=== PATIENT | female | born 1990 | race Caucasian/White ===

== ENCOUNTER 2018-09-21 15:17 | Emergency (ER) | payer SELFPAY ==
--- NOTE | 2018-09-21 16:12 | PDOC ---
Rapid Medical Evaluation Time Seen by Provider: 09/21/18 16:11 Medical Evaluation: Allergies Allergy/AdvReac Type Severity Reaction Status Date / Time No Known Allergies Allergy Verified 01/20/17 17:52 09/21/18 16:11 Pt c/o: ruq pain radiating to lower abd pain, LMP 08/18, no fever, diarrhea, no gi/gu hx Pt on brief exam: ruq tenderness, mild right and mid suprapubic pain Patient ordered for: lipase, cbc, comp, ua, upreg Pt to proceed to the ED Discharge Disposition - Diagnosis Abdominal pain - Referrals - Patient Instructions - Post Discharge Activity
[2018-09-21 16:30] VITALS: BP 126/60; PULSE 84; TEMP 98.1; BMI 20.3
[2018-09-21 16:59] LABS: HCG,QUALITATIVE URINE Positive
[2018-09-21 17:00] LABS: URINE APPEARANCE SLCLOUDY; URINE BILIRUBIN NEGATIVE (<2.0 mg/dL); URINE COLOR YELLOW; URINE GLUCOSE (UA) NEGATIVE (NEGATIVE); URINE KETONE NEGATIVE (NEGATIVE); URINE LEUK ESTERASE 2+ (NEGATIVE); URINE NITRITE NEGATIVE (NEGATIVE); URINE PROTEIN NEGATIVE (NEGATIVE); URINE UROBILINOGEN NEGATIVE mg/dL (0.2-1.0)
[2018-09-21 17:14] LABS: EPI CELLS MODERATE /HPF (FEW); URINE MUCUS MANY
[2018-09-21 17:38] LABS: ALBUMIN 3.8 g/dl (3.4-5.0); ALK PHOS 65 U/L (45-117); ANION GAP 5 MMOL/L (8-16); BILIRUBIN,TOTAL 0.2 mg/dL (0.2-1); BLOOD UREA NITROGEN 12 mg/dL (7-18); CALCIUM 8.6 mg/dL (8.5-10.1); CHLORIDE 105 mmol/L (98-107); CO2 28 mmol/L (21-32); CREATININE 0.7 mg/dL (0.55-1.3); GLUCOSE,RANDOM 54 mg/dL (74-106); LIPASE 79 U/L (73-393); POTASSIUM 3.5 mmol/L (3.5-5.1); SGOT/AST 15 U/L (15-37); SGPT/ALT 18 U/L (13-61); SODIUM 138 mmol/L (136-145); TOT PROT 7.4 g/dl (6.4-8.2)
[2018-09-21] MEDS ORDERED: ACETAMINOPHEN 1000 MG/100 ML VIAL (NON FORMULARY) IVPB ONE (17:41)
[2018-09-21] MEDS ORDERED: ACETAMINOPHEN INJECTION 100 ML IVPB ONE (17:53)
--- NOTE | 2018-09-21 17:56 | PDOC ---
History of Present Illness - General Chief Complaint: Pain Stated Complaint: PAIN Time Seen by Provider: 09/21/18 16:11 History Source: Patient - History of Present Illness Initial Comments: Patient is a 27 y/o w/ PMHx asthma p/w 1 day abdominal pain that began in the RUQ and radiated to the suprapubic region. 8/10 severity. Motrin provided no relief. Accompanied by nausea and brief vaginal spotting, no discharge. No vomiting/diarrhea/dysuria. No other pain. No other complaints. Hemodynamically stable on presentation. LMP 08/18/2018. Prior OBGYN Hx includes 1 ectopic , 1 elective , has three healthy children. Last delivery was assisted vaginal delivery complicated by variable decelerations in 2012 at [facility]. At time of encounter, labs had been sent and urine qualitative hCG was positive. Results explained to patient. Denies h/o GC/Chlamydia and/or PID. Prior ectopic was managed medically. 09/21/18 17:51 Past History - Travel Traveled outside of the country in the last 30 days: No Close contact w/someone who was outside of country & ill: No - Past Medical History Allergies/Adverse Reactions: Allergies Allergy/AdvReac Type Severity Reaction Status Date / Time No Known Allergies Allergy Verified 09/21/18 16:27 Home Medications: Ambulatory Orders Albuterol Sulfate Inhaler - [Ventolin Hfa *Inhaler*] 1 - 2 inh IH QID PRN Vitamins (r) - [ .Vitamins *Rx*] 1 tab PO DAILY 03/04/13 Iron 1 tab PO DAILY 08/11/13 Acetaminophen [Tylenol .Extra-Strength -] 500 mg PO Q4H #60 tablet 08/27/13 Nitrofurantoin Monohyd/M-Cryst [Macrobid -] 100 mg PO BID #28 capsule 09/21/18 Asthma: Yes (last attack june 2011) Cancer: No Cardiac Disorders: No COPD: No Diabetes: No HTN: No Seizures: No Thyroid Disease: No - Reproductive History (#): 2 Para: 2 Cervical CA: No Dysfunctional Uterine Bleeding: No Ectopic : No Endometrial CA: No Polycystic Ovaries: No Therapeutic (s) & number: Yes (1) Tubal Ligation: No Spontaneous : 0 - Immunization History Td Vaccination: Yes Immunization Up to Date: Yes - Suicide/Smoking/Psychosocial Hx Smoking Status: No Smoking History: Never smoked Years of Tobacco Use: 0 Have you smoked in the past 12 months: No Number of Cigarettes Smoked Daily: 0 Cigars Per Day: 0 Hx Alcohol Use: No Drug/Substance Use Hx: No Substance Use Type: None Hx Substance Use Treatment: No Review of Systems - Review of Systems Comments:: As per HPI 09/21/18 17:57 *Physical Exam - Vital Signs Last Vital Signs Temp Pulse Resp BP Pulse Ox 98.1 F 84 16 126/60 99 09/21/18 16:27 09/21/18 16:27 09/21/18 16:27 09/21/18 16:27 09/21/18 16:27 - Physical Exam Comments: Gen: A&Ox3, NAD HEENT: NC/AT, EOMI, PERRLA, MMM Neck: supple, no JVD, no LAD CV: RRR no m/r/g Resp: CTA b/l Abd: +bs, soft, diffuse tenderness most prominent in RUQ and suprapubic region Ext: 2+ pulses, wwp Neuro: construction job titles, motor, sensory systems w/o focal deficit Skin: warm, dry, normal turgor Psych: normal mood, normal affect Pelvic: normal external genitalia no lesions, no discharge; bimanual exam negative for adnexal tenderness or cervical motion tenderness; speculum exam demonstrated closed os, no cervical masses, physiologic discharge, no blood 09/21/18 17:57 Moderate Sedation - Procedure Monitoring Vital Signs: Procedure Monitoring Vital Signs Temperature 98.1 F 09/21/18 16:27 Pulse Rate 84 09/21/18 16:27 Respiratory Rate 16 09/21/18 16:27 Blood Pressure 126/60 09/21/18 16:27 O2 Sat by Pulse Oximetry (%) 99 09/21/18 16:27 ED Treatment Course - LABORATORY CBC & Chemistry Diagram: 09/21/18 16:38 09/21/18 16:38 - ADDITIONAL ORDERS Additional order review: Laboratory Results 09/21/18 09/21/18 16:38 16:38 Sodium 138 Potassium 3.5 Chloride 105 Carbon Dioxide 28 Anion Gap 5 L BUN 12 Creatinine 0.7 Creat Clearance w eGFR > 60 Random Glucose 54 L Calcium 8.6 Total Bilirubin 0.2 AST 15 ALT 18 Alkaline Phosphatase 65 Total Protein 7.4 Albumin 3.8 Lipase 79 Beta HCG, Quant 5337.9 Urine Color Yellow Urine Appearance Slcloudy Urine pH 6.0 Ur Specific [place] 1.023 Urine Protein Negative Urine Glucose (UA) Negative Urine Ketones Negative Urine Blood 1+ H Urine Nitrite Negative Urine Bilirubin Negative Urine Urobilinogen Negative Ur Leukocyte Esterase 2+ H D Urine WBC (Auto) 7 Urine RBC (Auto) 11 Ur Epithelial Cells Moderate Urine Mucus Many Urine HCG, Qual Positive - RADIOLOGY Radiology Studies Ordered: Category Date Time Status ABDOMEN US [US] Stat Ultrasound 09/21/18 17:35 Stop Req TRANSVAGINAL US PREG [US] Stat Ultrasound 09/21/18 17:02 Ordered Medical Decision Making - Medical Decision Making Serum quantitative hCG ordered in light of positive urine hCG. FAST exam demonstrated no free fluid. Ordered transvaginal US to r/o ectopic . IV acetaminophen for pain. 09/21/18 18:01 *DC/Admit/Observation/Transfer Diagnosis at time of Disposition: Qualifiers: Weeks of gestation: less than 8 weeks Qualified Code(s): Z3A.01 - Less than 8 weeks gestation of - Discharge Dispostion Disposition: HOME Condition at time of disposition: Stable - Referrals Referrals: Andrei Truong MD [Staff Physician] - Roman Norris MD [Staff Physician] - - Patient Instructions Printed Discharge Instructions: Common Discomforts and Bodily Changes During , Eating for Appropriate Weight Gain During , DI for -- Discomforts and Remedies Additional Instructions: You presented with abdominal pain and spotting and it was determined that this was due to . It was determined that you have an intrauterine approximately 6 weeks in gestation. Because you experienced bleeding, this is at risk of miscarriage. You will need to return for followup lab work in 48 hours (on September 23) to confirm that the is viable. We have provided referrals to OBGYN providers. Please schedule followup within one week from discharge. Additionally, your lab work showed evidence of a urinary tract infection. 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 If you experience any sudden abdominal, flank, or pelvic pain, vaginal bleeding , vaginal discharge, recurrent vomiting, loss of consciousness, or any other new or concerning symptom, please return to the Emergency Department immediately. - Post Discharge Activity
[2018-09-21 17:57] LABS: BASO % 0.3 % (0-2.0); EOS % 11.2 % (0-4.5); HEMATOCRIT 38.3 % (32.4-45.2); HEMOGLOBIN 13.6 GM/dL (10.7-15.3); LYMPH % 20.9 % (8-40); MCH 32.1 pg (25.7-33.7); MCHC 35.4 g/dl (32.0-36.0); MEAN CELL VOLUME 90.5 fl (80-96); MEAN PLT VOLUME 9.7 fl (7.5-11.1); MONO % 7.7 % (3.8-10.2); NEUT % 59.9 % (42.8-82.8); PLATELET COUNT 244 K/MM3 (134-434); RBC 4.23 M/mm3 (3.60-5.2); RDW 12.5 % (11.6-15.6); WHITE BLOOD COUNT 7.2 K/mm3 (4.0-10.0)
--- NOTE | 2018-09-21 18:29 | PDOC ---
Attending Attestation - Resident Resident Name: RjFransico bajwael - ED Attending Attestation I have performed the following: I have examined & evaluated the patient, The case was reviewed & discussed with the resident, I agree w/resident's findings & plan, Exceptions are as noted - HPI HPI: 09/21/18 18:27 The patient is a 27 year old female, , with a significant past medical history of asthma who presents to the emergency department today complaining of 1 day of abdominal pain with associated nausea . The patient describes her pain as 8/10, right upper quadrant abdominal pain that has now radiated to her suprapubic region. UPT in triage is +, pt did not know she was . LMP . +vaginal spotting. Pt reports her last was an ectopic 3 years ago for which she was given a pill. No surgery required. The patient denies chest pain, shortness of breath, headache and dizziness. The patient denies fever, chills, vomit, diarrhea and constipation. The patient denies dysuria, frequency, and urgency. Allergies: NKA Past surgical history: elective x1 Social history: No reported - Physicial Exam PE: 09/21/18 18:29 GENERAL: Awake, alert, and fully oriented, in no acute distress EYES: PERRLA, EOMI, sclera anicteric, conjunctiva clear ENT: Oropharynx clear without exudates. Moist mucosa NECK: Normal ROM, supple, no lymphadenopathy, JVD, or masses LUNGS: Breath sounds equal, clear to auscultation bilaterally. No wheezes, and no crackles HEART: Regular rate and rhythm, normal S1 and S2, no murmurs, rubs or gallops ABDOMEN: Soft, +suprapubic ttp. No guarding, no rebound. No masses : normal ext genitalia, no midline or adnexal ttp, no CMP, no blood in vault, os is closed EXTREMITIES: Normal range of motion, no edema. No cords, erythema, or tenderness NEUROLOGICAL: Normal speech, cranial nerves intact, equal strength and sensation b/l SKIN: Warm, Dry, normal turgor, no rashes or lesions noted. - Medical Decision Making 09/21/18 18:38 27yo F , hx ectopic presents to the ED with RUQ, now suprapubic pain x 1 day with vaginal spotting, found to be . Vitals wnl. Exam with well appearing pt, and suprapubic ttp. Concern for ectopic vs threatened AB vs UTI. BEdside FAST exam negative. Plan for TVUS, labs, pain control, reassess. Previous type and screen x2 in our EMR is O+. 09/21/18 19:30 TVUS with about 6 week intrauterine and 3cm L sided ovarian cyst B HCG 5000 which is a bit on the low side Given report of spotting from pt, likely threatened Ab Since 48hrs is on Monday, pt advised to come here for repeat beta UA also c/f UTI, will treat with macrobid Rpt abd exam with no ttp All results explained to pt, return precautions given, brittny for sudden onset worse abd pain Pt expresses understanding, requests DC home I discussed the physical exam findings, ancillary test results and final diagnoses with the patient. I answered all of the patient's questions. The patient was satisfied with the care received and felt comfortable with the discharge plan and treatment plan. The patient will call their primary care physician within 24 hours to arrange follow-up and will return to the Emergency Department with any new, persistent or worsening symptoms.
== END 2018-09-21 19:45 | disposition home or self-care (01) ==
LOC: JER 15:17
PROC: 3E033NZ Introduction of Analgesics, Hypnotics, Sedatives into Peripheral Vein, Percutaneous Approach (ICD-10-PCS; principal; 2018-09-21)
DX: O26.891 Other specified pregnancy related conditions, first trimester (principal); O20.0 Threatened abortion; O23.41 Unspecified infection of urinary tract in pregnancy, first trimester; O34.81 Maternal care for other abnormalities of pelvic organs, first trimester; N83.292 Other ovarian cyst, left side; Z3A.01 Less than 8 weeks gestation of pregnancy
CPT/HCPCS: 36415; 76817-TC; 80053; 81003; 81015; 83690; 84702; 84703; 85025; 87086; 99284-25; J0131